=== PATIENT | female | born 1995 | race Two or more races ===

== ENCOUNTER 2024-05-18 22:53 | Emergency (ER) | payer OTHER ==
[~2024-05-18] VITALS: Ht 165.1 cm; Wt 90.9 kg
[2024-05-18 22:59] VITALS: BP 110/55; PULSE 125; RESP 18; TEMP 98.5; O2SAT 99
== END 2024-05-19 00:57 | disposition left against medical advice (07) ==
LOC: EMS 22:53
DX: R10.9 Unspecified abdominal pain (principal); Z53.21 Procedure and treatment not carried out due to patient leaving prior to being seen by health care provider